=== PATIENT | female | born 1955 | race Caucasian/White ===

== ENCOUNTER 2016-12-21 12:03 | Inpatient (IN) | payer OTHER ==
--- NOTE | ~2016-12-21 | HP ---
History And Physical [id number] [place]. [address] NAME: MARKUS HOFFMAN : 57 STATUS : ADM IN [facility]#: [id number] AGE: 61 ADM/REG DATE : 12/21/16 MR#: [id number] REPORT SERV DATE: 12/21/16 DICTATED BY: BOONE SARMIENTO DATE: 12/21/16 REPORT STATUS : Draft TRANSCRIBED BY: JOHNNIE DATE: 12/21/16 DATE OF ADMISSION: 12/21/2016 CHIEF COMPLAINT: Nausea and diarrhea. HISTORY OF PRESENT ILLNESS: The patient is a 61-year-old white female recently diagnosed with breast cancer, started chemotherapy, received one round of chemotherapy on Monday prior to admission with Perjeta, carboplatin, Herceptin, and Taxotere. Since then, she has just become progressively weak. She has not been able to tolerate any food. She has had significant diarrhea last night. She got so worse that she could hardly turn over in bed, and then Monday prior to this admission, this patient actually fell out of her chair, almost had a syncopal episode injuring her left shoulder and her left arm. She went to the Oncology office today and was transferred here for further evaluation and treatment. Her ANC was 400. This patient denies any blood in the stool. She has not had any chest pain, shortness of breath. No vomiting. She has lost significant amount of weight and is down to about 100 pounds. She denied any fevers or chills or no other constitutional symptoms. REVIEW OF SYSTEMS: A 10-point review of systems otherwise is negative. PAST MEDICAL HISTORY: Significant for breast cancer, which is recently diagnosed; migraine headaches; seizure disorder; and hypertension. PAST SURGICAL HISTORY: Significant for hysterectomy and cholecystectomy. ALLERGIES: SULFA, ADHESIVE TAPE, AND PHENERGAN. HOME MEDICATIONS: Tylenol 500 mg every six hours p.r.n. for pain, Lomotil 2.5 mg p.o. every two hours p.r.n., Marinol 2.5 mg p.o. before meals, Lamictal 150 mg twice daily, lisinopril 40 mg twice daily, pravastatin 40 mg once at bedtime, and chemotherapy once every 21 days. SOCIAL HISTORY: She denies use of tobacco or cigarettes. She rarely drinks. She denies use of any illicit substances. Lives at home and is self-sufficient in all ADLs. FAMILY HISTORY: Distant cousins and relatives with breast cancer. No immediate family including sister or mother or brothers with breast cancer. She does have heart disease in her family including both parents. PHYSICAL EXAMINATION: GENERAL: White female, lying on the bed, appears to be in no obvious respiratory distress, but does appear acutely ill, very weak and feeble appearing. VITAL SIGNS: Blood pressure 138/65, temperature is 99, pulse is 92, saturation of 98% on room air. HEENT: Head is normocephalic, atraumatic. Pupils are equal, round, and reactive to light. Extraocular muscles are intact. Sclerae anicteric. Conjunctivae are normal. Oropharynx, dry mucous membranes. Tongue protrudes in midline. Uvula midline. History And Physical [address] [address] NAME: MARKUS HOFFMAN : 57 STATUS : ADM IN [facility]#: [id number] AGE: 61 ADM/REG DATE : 12/21/16 MR#: [id number] REPORT SERV DATE: 12/21/16 DICTATED BY: BOONE SARMIENTO. DATE: 12/21/16 REPORT STATUS : Draft TRANSCRIBED BY: JOHNNIE DATE: 12/21/16 NECK: Supple. No evidence of any jugular venous distention. No carotid bruits or thyromegaly is appreciated. No lymphadenopathy in the neck is palpable. HEART: Distant tachycardia. No murmurs, rubs, or gallops. PMI nondisplaced. LUNGS: Clear to auscultation both anteriorly and posteriorly without rales, rhonchi, wheezing, or consolidation. ABDOMEN: Scaphoid, soft, nontender, good bowel sounds. No rebound or guarding. No organomegaly. EXTREMITIES: Without cyanosis, clubbing, or edema. NEUROLOGIC: Completely intact. LABORATORY DATA: Procalcitonin level is pending. Sodium 137, potassium 3.5, chloride 106, bicarb 27, BUN 8, creatinine 0.89, glucose of 76, calcium is 8.2, total protein 5.9, albumin is 2.8. Liver function studies are all normal. Lactate level is pending. White count is 8.3, hemoglobin of 9.4, hematocrit 27, platelet count is 182,000. Urinalysis is pending. Stool studies are pending. IMPRESSION: 1. Hypotension with hypovolemic shock. 2. Dehydration. 3. Diarrhea. 4. Breast cancer. 5. Migraine headaches. 6. Seizure disorder. 7. Hyperlipidemia. PLAN: The patient will be admitted. IV fluids will be given. We will monitor labs. We will have Dr. Kana Yates see the patient in consultation. I have personally addressed all home medications. We will check stool studies for C difficile, WBC, cultures, and O and P. the patient remains a full code. SV/MODL Boone Sarmiento M.D. / [id number] CC: Boone Sarmiento M.D. [facility] Kana Yates M.D.
--- NOTE | ~2016-12-21 | IDS ---
Interim Discharge Summary [facility] [address] [place]. [address] NAME: MARKUS HOFFMAN : 57 STATUS : ADM IN [facility]#: [id number] AGE: 61 ADM/REG DATE : 12/21/16 MR#: [id number] REPORT SERV DATE: 12/26/16 DICTATED BY: LAUREN LEDBETTER DATE: 12/26/16 REPORT STATUS : Draft TRANSCRIBED BY: MODL DATE: 12/26/16 ADMISSION DATE: 12/21/2016 DISCHARGE DATE: DIAGNOSES: 1. Fever/colitis, on Zosyn. 2. Diarrhea secondary to chemotherapy. 3. Breast cancer. 4. Failure to thrive. 5. Severe protein-calorie malnutrition. 6. Hyponatremia. 7. Debility. LABORATORY DATA: WBCs 10.7, hemoglobin 9.7, hematocrit 28.4, platelet count is 239. Sodium is 130, potassium is 4.4, chloride is 102, CO2 is 20, BUN is 28, creatinine is 0.93, and glucose is 103. COURSE AT HOSPITAL STAY: Please refer to history and physical dictated by Dr. Sarmiento on 12/21/2016, for complete admission details. This patient is a 61-year-old female with a history of breast cancer, started chemotherapy and received one round of chemo one day prior to this admission. She presented with complaints of nausea and vomiting as well as diarrhea following chemotherapy stating that she was unable to keep anything down. 1. Fever/colitis. The patient was started on Zosyn on 12/24/2016. Blood cultures have remained negative. Procalcitonin was 0.57. The patient had been afebrile x24 hours. Antibiotics continued at this time. 2. Diarrhea secondary to chemotherapy. Upon admission, stool studies were obtained, which were negative. The patient at this time is on Lomotil ?.. 3. Breast cancer. The patient is followed by Dr. Kana Yates. Oncology is following the patient during this hospital stay. She has received one cycle of chemotherapy prior to this admission. At that time, she received Perjeta, carboplatin, Herceptin, and Taxotere. 4. Failure to thrive, severe protein-calorie malnutrition. The patient has been unable to keep food down, stating that she has approximately lost 100 pounds. TPN was started on 12/23/2016 potentially for 7-10 days. But she is tolerating a clear liquid diet at this time. 5. Debility. The patient has had complaints of extreme weakness and fatigue. PT evaluation has been ordered for evaluation and treatment. Discharge planning will be pending PT providing evaluation recommendations. DISCHARGE PLANNING: PT evaluation pending, unsure if the patient would be discharged home or to a rehab facility. apartment community manager is following the patient. Discharge date at this time is unknown. Interim Discharge Summary [address] [place]. [address] NAME: MARKUS HOFFMAN : 57 STATUS : ADM IN [facility]#: [id number] AGE: 61 ADM/REG DATE : 12/21/16 MR#: [id number] REPORT SERV DATE: 12/26/16 DICTATED BY: LAUREN LEDBETTER DATE: 12/26/16 REPORT STATUS : Draft TRANSCRIBED BY: JOHNNIE DATE: 12/26/16 /JOHNNIE Lauren Ledbetter NP / [id number] CC: Chico Nobles MD TA, ANH
--- NOTE | ~2016-12-21 | DS ---
Discharge Summary [id number] [place]. [address] NAME: MARKUS HOFFMAN : 57 STATUS : DIS IN PAT#: [id number] AGE: 61 ADM/REG DATE : 12/21/16 MR#: [id number] REPORT SERV DATE: 01/03/17 DICTATED BY: DATE: REPORT STATUS : Draft TRANSCRIBED BY: MODL DATE: 01/02/17 ADMISSION DATE: 12/21/2016 DISCHARGE DATE: 01/02/2017 DISCHARGE DIAGNOSES: 1. Fever and mild colitis. 2. Diarrhea due to fever and mild colitis and chemotherapy. 3. Breast cancer stage II, positive nodes and HER2. 4. Failure to thrive with severe protein-calorie malnutrition. 5. Debility. 6. Transaminitis. CONSULTING PHYSICIAN: Include Dr. Jordan Yates with Oncology. DISCHARGE MEDICATIONS: Include, Lomotil 2.5 mg p.o. q.6 hours p.r.n. for loose stools. Marinol 5 mg p.o. with meals and at bedtime. Lamictal 150 mg p.o. b.i.d. Multivitamin daily. Pravastatin 40 mg p.o. at bedtime. Lisinopril 40 mg p.o. b.i.d. Tylenol 500 mg p.o. q.4 hours p.r.n. for pain. Compazine 10 mg p.o. t.i.d. p.r.n. for nausea. For full H and P, please refer to Dr. Boone Sarmiento's dictation on 12/21/2016. Please also see Micaela Ledbetter's interim discharge summary on 12/26/2016. IMAGING: Includes CT of the abdomen and pelvis with contrast which demonstrated mild colitis from the mid transverse colon to the rectum with fluid-filled colon and mild engorgement of the vasa recta. There was not substantial wall thickening of the colon. Appearance of the liver was within normal limits. No biliary obstruction was noted. The patient is status post cholecystectomy and pancreatic division which is a normal variant. HOSPITAL COURSE/PROBLEM LIST: 1. Fevers and colitis. The patient is afebrile. She has had 1-2 bowel movements for the last two days. Continue Lomotil and Imodium p.r.n. upon discharge. 2. Diarrhea due to fevers, colitis, and chemotherapy. Again, the patient has had 1-2 bowel movements for the last several days. 3. Stage II breast cancer with positive nodes and HER2. The patient is followed by Dr. Jordan Yates. She will follow up with him as an outpatient in one week. 4. Failure to thrive. The patient was on TPN during most of her hospital course. I weaned this off yesterday. The patient is now taking in p.o. She is eating a regular diet and also drinking Boost with meals. She has had severe nausea, that is controlled now with Marinol 5 mg 4 times a day as well as Compazine p.o. continue this upon discharge. 5. Debility. The patient was evaluated by Physical Therapy while here in the hospital. They have been following along. We will set up home health care physical therapy for her. The patient states she has a good support system at home. Her son is an RN who helps take care of her. 6. Transaminitis. This is likely due to the TPN. Her last ALT was 120, and AST is 76, lipase was 655. This is stable. She will need this rechecked as an outpatient to Discharge Summary [address] [place]. [address] NAME: MARKUS HOFFMAN : 57 STATUS : DIS IN PAT#: [id number] AGE: 61 ADM/REG DATE : 12/21/16 MR#: [id number] REPORT SERV DATE: 01/03/17 DICTATED BY: DATE: REPORT STATUS : Draft TRANSCRIBED BY: JOHNNIE DATE: 01/02/17 ensure that these are trending down. Again, she has a followup with Dr. Jordan Yates in one week post discharge. This discharge took greater than 30 minutes due to medication reconciliation, coordination with the case management to set up home health care PT as well as education with the patient. DICTATED BY: SUSAN Munguia/JOHNNIE Azar Slade NP / [id number] CC: Sylvia Edouard MD
[2016-12-21] MEDS ORDERED: LAMICTAL150 MG PO (13:07)
[2016-12-21] MEDS ORDERED: ZESTRIL40 MG PO (13:07)
[2016-12-21] MEDS ORDERED: PRAVACHOL40 MG PO (13:07)
[2016-12-21] MEDS ORDERED: MARI2.5 PO (13:08)
[2016-12-21] MEDS ORDERED: CHEMO IV (13:08)
[2016-12-21] MEDS ORDERED: LOM PO (13:09)
[2016-12-21] MEDS ORDERED: ACET500CAP PO (13:10)
[2016-12-21 14:05] LABS: HEMATOCRIT 27.5 % (36.0-48.0); HEMOGLOBIN 9.4 g/dL (12.0-16.0); MANUAL DIFF YES %; MEAN CORPUS HGB CONC 34.2 g/dL (32.0-36.0); MEAN CORPUSCULAR HEMOGLOB 30.8 pg (26.0-34.0); MEAN CORPUSCULAR VOLUME 90.2 fL (80-100); PLATELET COUNT 182 10/3/uL (150-400); RED CELL COUNT 3.05 10/6/uL (4.0-5.6); WHITE BLOOD CELLS 8.3 10/3/uL (4.5-10.5)
[2016-12-21 14:18] LABS: A/G RATIO 0.9 (0.7-1.9); ALBUMIN 2.8 G/DL (3.5-5.0); ALKALINE PHOSPHATASE 94 U/L (45-117); BUN (BLOOD UREA NITROGEN) 8 MG/DL (6-23); CALCIUM, SERUM 8.2 MG/DL (8.5-10.4); CHLORIDE, SERUM 106 MMOL/L (96-112); CO2 (CARBON DIOXIDE) 27 MMOL/L (24-34); CREATININE 0.89 MG/DL (0.55-1.02); GFR AFRICAN AMERICAN 82 ML/MIN (>=60); GFR NON AFRICAN AMERICAN 70 ML/MIN (>=60); GLOBULIN 3.1 G/DL (2.5-4.1); GLUCOSE, SERUM 76 MG/DL (60-99); POTASSIUM, SERUM 3.5 MMOL/L (3.5-5.3); SGOT(AST) 17 U/L (5-40); SGPT(ALT) 18 U/L (5-65); SODIUM, SERUM 137 MMOL/L (135-148); TOTAL BILIRUBIN 0.3 MG/DL (0-1.2); TOTAL PROTEIN 5.9 G/DL (6.0-8.5)
[2016-12-21 14:22] LABS: BAND NEUTROPHILS 5 %; LYMPHOCYTES 18 %; LYMPHOCYTES ABSOLUTE (CALC) 1.49 10/3/uL (0.67-4.30); MONOCYTES 16 %; MONOCYTES ABSOLUTE (CALC) 1.33 10/3/uL (0.21-1.20); NEUTROPHILS ABSOLUTE (CALC) 5.48 10/3/uL (2.02-8.40); PLATELET ESTIMATE ADQ (ADEQUATE); RBC MORPHOLOGY NORM (NORMAL); SEGMENTED NEUTROPHIL (0) 61 %; TOTAL NUCLEATED CELLS 100
[2016-12-21 15:16] LABS: PROCALCITONIN 0.62 ng/mL (<0.5)
[2016-12-21 16:28] LABS: PHOSPHORUS, SERUM 2.4 MG/DL (2.5-4.5)
[2016-12-21 16:31] LABS: RETICULOCYTE COUNT < 0.4 % (0.5-2.9)
[2016-12-21 16:37] LABS: ASCORBIC ACID (UR NOT ORDER) NEG (NEG); BILIRUBIN, URINE NEGATIVE (NEG); KETONE, URINE NEGATIVE (NEG); LEUKOCYTE ESTERASE(NOT OR NEG (NEG); WBC (NOT ORDERED) (RFLEX) 1 (0-5)
[2016-12-23 04:58] LABS: HEMATOCRIT 25.3 % (36.0-48.0); HEMOGLOBIN 8.7 g/dL (12.0-16.0); MEAN CORPUS HGB CONC 34.4 g/dL (32.0-36.0); MEAN CORPUSCULAR HEMOGLOB 30.6 pg (26.0-34.0); MEAN CORPUSCULAR VOLUME 89.1 fL (80-100); PLATELET COUNT 189 10/3/uL (150-400); RBC DISTRIBUTION WIDTH 12.2 % (12.0-16.0); RED CELL COUNT 2.84 10/6/uL (4.0-5.6)
[2016-12-23 05:03] LABS: MANUAL DIFF YES %; WHITE BLOOD CELLS 13.3 10/3/uL (4.5-10.5)
[2016-12-23 05:21] LABS: ALBUMIN 2.4 G/DL (3.5-5.0); CALCIUM, SERUM 7.5 MG/DL (8.5-10.4); CHLORIDE, SERUM 107 MMOL/L (96-112); CO2 (CARBON DIOXIDE) 23 MMOL/L (24-34); CREATININE 0.79 MG/DL (0.55-1.02); GFR AFRICAN AMERICAN 94 ML/MIN (>=60); GFR NON AFRICAN AMERICAN 81 ML/MIN (>=60); SODIUM, SERUM 139 MMOL/L (135-148)
[2016-12-23 05:33] LABS: BUN (BLOOD UREA NITROGEN) < 1 MG/DL (6-23); GLUCOSE, SERUM 105 MG/DL (60-99); PHOSPHORUS, SERUM 1.5 MG/DL (2.5-4.5); POTASSIUM, SERUM 2.8 MMOL/L (3.5-5.3)
[2016-12-23 06:25] LABS: BAND NEUTROPHILS 11 %; EOSINOPHILS 1 %; EOSINOPHILS ABSOLUTE (CALC) 0.13 10/3/uL (0.0-0.53); IMMATURE GRANS ABSOLUTE (CALC) 1.06 10/3/uL (0.0-0.11); LYMPHOCYTES 17 %; LYMPHOCYTES ABSOLUTE (CALC) 2.26 10/3/uL (0.67-4.30); METAMYELOCYTES 7 %; MONOCYTES 12 %; MYELOCYTES 1 %; NEUTROPHILS ABSOLUTE (CALC) 8.25 10/3/uL (2.02-8.40); PLATELET ESTIMATE ADQ (ADEQUATE); RBC MORPHOLOGY NORM (NORMAL); SEGMENTED NEUTROPHIL (0) 51 %; TOTAL NUCLEATED CELLS 100
[2016-12-23 10:21] LABS: PREALBUMIN 9.6 MG/DL (17.0-43.0); TRIGLYCERIDE 75 MG/DL (< 150)
[2016-12-24 06:42] LABS: HEMOGLOBIN 9.9 g/dL (12.0-16.0); MEAN CORPUS HGB CONC 34.3 g/dL (32.0-36.0); MEAN CORPUSCULAR HEMOGLOB 30.7 pg (26.0-34.0); MEAN CORPUSCULAR VOLUME 89.5 fL (80-100); MEAN PLATELET VOLUME 9.1 fL (9.2-13.0); PLATELET COUNT 206 10/3/uL (150-400); RED CELL COUNT 3.23 10/6/uL (4.0-5.6); WHITE BLOOD CELLS 10.1 10/3/uL (4.5-10.5)
[2016-12-24 06:47] LABS: HEMATOCRIT 28.9 % (36.0-48.0); MANUAL DIFF YES %
[2016-12-24 06:57] LABS: A/G RATIO 0.7 (0.7-1.9); ALBUMIN 2.3 G/DL (3.5-5.0); CALCIUM, SERUM 8.1 MG/DL (8.5-10.4); CHLORIDE, SERUM 103 MMOL/L (96-112); CO2 (CARBON DIOXIDE) 23 MMOL/L (24-34); CREATININE 0.84 MG/DL (0.55-1.02); GFR AFRICAN AMERICAN 88 ML/MIN (>=60); GFR NON AFRICAN AMERICAN 76 ML/MIN (>=60); GLOBULIN 3.4 G/DL (2.5-4.1); GLUCOSE, SERUM 107 MG/DL (60-99); SGOT(AST) 8 U/L (5-40); SGPT(ALT) 13 U/L (5-65); SODIUM, SERUM 135 MMOL/L (135-148); TOTAL BILIRUBIN 0.4 MG/DL (0-1.2); TOTAL PROTEIN 5.7 G/DL (6.0-8.5)
[2016-12-24 06:58] LABS: ALKALINE PHOSPHATASE 136 U/L (45-117); BUN (BLOOD UREA NITROGEN) 13 MG/DL (6-23); PHOSPHORUS, SERUM 2.2 MG/DL (2.5-4.5)
[2016-12-24 07:30] LABS: BAND NEUTROPHILS 39 %; LYMPHOCYTES 14 %; LYMPHOCYTES ABSOLUTE (CALC) 1.41 10/3/uL (0.67-4.30); METAMYELOCYTES 1 %; MONOCYTES 8 %; MONOCYTES ABSOLUTE (CALC) 0.81 10/3/uL (0.21-1.20); NEUTROPHILS ABSOLUTE (CALC) 7.78 10/3/uL (2.02-8.40); PLATELET ESTIMATE ADQ (ADEQUATE); RBC MORPHOLOGY NORM (NORMAL); SEGMENTED NEUTROPHIL (0) 38 %; TOTAL NUCLEATED CELLS 100; TOXIC GRANULATION 1+
[2016-12-24 08:19] LABS: PROCALCITONIN 0.57 ng/mL (<0.5)
[2016-12-25 05:00] LABS: HEMATOCRIT 27.1 % (36.0-48.0); HEMOGLOBIN 9.4 g/dL (12.0-16.0); MEAN CORPUS HGB CONC 34.7 g/dL (32.0-36.0); MEAN CORPUSCULAR HEMOGLOB 30.2 pg (26.0-34.0); MEAN CORPUSCULAR VOLUME 87.1 fL (80-100); MEAN PLATELET VOLUME 9.3 fL (9.2-13.0); PLATELET COUNT 211 10/3/uL (150-400); RBC DISTRIBUTION WIDTH 12.3 % (12.0-16.0); RED CELL COUNT 3.11 10/6/uL (4.0-5.6); WHITE BLOOD CELLS 9.5 10/3/uL (4.5-10.5)
[2016-12-25 05:01] LABS: MANUAL DIFF YES %
[2016-12-25 05:18] LABS: BUN (BLOOD UREA NITROGEN) 24 MG/DL (6-23); CALCIUM, SERUM 8.2 MG/DL (8.5-10.4); CHLORIDE, SERUM 101 MMOL/L (96-112); CO2 (CARBON DIOXIDE) 22 MMOL/L (24-34); CREATININE 0.95 MG/DL (0.55-1.02); GFR AFRICAN AMERICAN 75 ML/MIN (>=60); GFR NON AFRICAN AMERICAN 65 ML/MIN (>=60); GLUCOSE, SERUM 100 MG/DL (60-99); PHOSPHORUS, SERUM 1.7 MG/DL (2.5-4.5); POTASSIUM, SERUM 3.9 MMOL/L (3.5-5.3); SODIUM, SERUM 130 MMOL/L (135-148)
[2016-12-25 05:55] LABS: BAND NEUTROPHILS 30 %; IMMATURE GRANS ABSOLUTE (CALC) 0.19 10/3/uL (0.0-0.11); LYMPHOCYTES 10 %; LYMPHOCYTES ABSOLUTE (CALC) 0.95 10/3/uL (0.67-4.30); METAMYELOCYTES 1 %; MONOCYTES 5 %; MONOCYTES ABSOLUTE (CALC) 0.48 10/3/uL (0.21-1.20); MYELOCYTES 1 %; NEUTROPHILS ABSOLUTE (CALC) 7.89 10/3/uL (2.02-8.40); SEGMENTED NEUTROPHIL (0) 53 %; TOTAL NUCLEATED CELLS 100
[2016-12-25 05:56] LABS: BURR CELLS 1+ (3-10/OIF) (0-2/OIF); PLATELET ESTIMATE ADQ (ADEQUATE); TOXIC GRANULATION SLT
[2016-12-26 05:13] LABS: HEMATOCRIT 28.4 % (36.0-48.0); HEMOGLOBIN 9.7 g/dL (12.0-16.0); MEAN CORPUS HGB CONC 34.2 g/dL (32.0-36.0); MEAN CORPUSCULAR HEMOGLOB 29.9 pg (26.0-34.0); MEAN CORPUSCULAR VOLUME 87.7 fL (80-100); MEAN PLATELET VOLUME 9.3 fL (9.2-13.0); PLATELET COUNT 239 10/3/uL (150-400); RBC DISTRIBUTION WIDTH 12.5 % (12.0-16.0); RED CELL COUNT 3.24 10/6/uL (4.0-5.6); WHITE BLOOD CELLS 10.7 10/3/uL (4.5-10.5)
[2016-12-26 05:17] LABS: MANUAL DIFF YES %
[2016-12-26 05:25] LABS: CALCIUM, SERUM 8.8 MG/DL (8.5-10.4); CHLORIDE, SERUM 102 MMOL/L (96-112); CO2 (CARBON DIOXIDE) 20 MMOL/L (24-34); CREATININE 0.93 MG/DL (0.55-1.02); GFR AFRICAN AMERICAN 77 ML/MIN (>=60); GFR NON AFRICAN AMERICAN 67 ML/MIN (>=60); GLUCOSE, SERUM 103 MG/DL (60-99); POTASSIUM, SERUM 4.4 MMOL/L (3.5-5.3); SODIUM, SERUM 130 MMOL/L (135-148)
[2016-12-26 05:26] LABS: BUN (BLOOD UREA NITROGEN) 28 MG/DL (6-23); PHOSPHORUS, SERUM 3.2 MG/DL (2.5-4.5)
[2016-12-26 07:55] LABS: BAND NEUTROPHILS 10 %; IMMATURE GRANS ABSOLUTE (CALC) 0.32 10/3/uL (0.0-0.11); LYMPHOCYTES 12 %; LYMPHOCYTES ABSOLUTE (CALC) 1.28 10/3/uL (0.67-4.30); METAMYELOCYTES 2 %; MONOCYTES 9 %; MONOCYTES ABSOLUTE (CALC) 0.96 10/3/uL (0.21-1.20); MYELOCYTES 1 %; NEUTROPHILS ABSOLUTE (CALC) 8.13 10/3/uL (2.02-8.40); PLATELET ESTIMATE ADQ (ADEQUATE); SEGMENTED NEUTROPHIL (0) 66 %; TOTAL NUCLEATED CELLS 100; VACUOLATED NEUTROPHILES 1+
[2016-12-26 07:56] LABS: RBC MORPHOLOGY NORM (NORMAL); TOXIC GRANULATION 2+
[2016-12-27 04:32] LABS: HEMATOCRIT 29.1 % (36.0-48.0); MEAN CORPUS HGB CONC 34.4 g/dL (32.0-36.0); MEAN CORPUSCULAR HEMOGLOB 30.7 pg (26.0-34.0); MEAN CORPUSCULAR VOLUME 89.3 fL (80-100); MEAN PLATELET VOLUME 9.5 fL (9.2-13.0); PLATELET COUNT 297 10/3/uL (150-400); RBC DISTRIBUTION WIDTH 12.5 % (12.0-16.0); RED CELL COUNT 3.26 10/6/uL (4.0-5.6); WHITE BLOOD CELLS 10.7 10/3/uL (4.5-10.5)
[2016-12-27 04:33] LABS: ALBUMIN 2.5 G/DL (3.5-5.0); BUN (BLOOD UREA NITROGEN) 27 MG/DL (6-23); CALCIUM, SERUM 9.3 MG/DL (8.5-10.4); CHLORIDE, SERUM 106 MMOL/L (96-112); CO2 (CARBON DIOXIDE) 22 MMOL/L (24-34); CREATININE 0.89 MG/DL (0.55-1.02); GFR AFRICAN AMERICAN 82 ML/MIN (>=60); GFR NON AFRICAN AMERICAN 70 ML/MIN (>=60); GLUCOSE, SERUM 93 MG/DL (60-99); MANUAL DIFF YES %; PHOSPHORUS, SERUM 3.6 MG/DL (2.5-4.5); POTASSIUM, SERUM 5.1 MMOL/L (3.5-5.3); SGOT(AST) 146 U/L (5-40); SGPT(ALT) 103 U/L (5-65); TOTAL BILIRUBIN 0.4 MG/DL (0-1.2); TOTAL PROTEIN 6.6 G/DL (6.0-8.5)
[2016-12-27 04:35] LABS: A/G RATIO 0.6 (0.7-1.9); ALKALINE PHOSPHATASE 442 U/L (45-117); GLOBULIN 4.1 G/DL (2.5-4.1); SODIUM, SERUM 137 MMOL/L (135-148)
[2016-12-27 05:00] LABS: ATYPICAL LYMPH OCC (0-2%) (0-5%); BAND NEUTROPHILS 9 %; IMMATURE GRANS ABSOLUTE (CALC) 1.18 10/3/uL (0.0-0.11); LYMPHOCYTES 21 %; LYMPHOCYTES ABSOLUTE (CALC) 2.25 10/3/uL (0.67-4.30); METAMYELOCYTES 7 %; MONOCYTES 3 %; MONOCYTES ABSOLUTE (CALC) 0.32 10/3/uL (0.21-1.20); MYELOCYTES 4 %; NEUTROPHILS ABSOLUTE (CALC) 6.96 10/3/uL (2.02-8.40); PLATELET ESTIMATE ADQ (ADEQUATE); SEGMENTED NEUTROPHIL (0) 56 %; TOTAL NUCLEATED CELLS 100; TOXIC GRANULATION 1+
[2016-12-28 05:21] LABS: HEMOGLOBIN 8.9 g/dL (12.0-16.0); MEAN CORPUS HGB CONC 34.5 g/dL (32.0-36.0); MEAN CORPUSCULAR HEMOGLOB 30.8 pg (26.0-34.0); MEAN CORPUSCULAR VOLUME 89.3 fL (80-100); MEAN PLATELET VOLUME 9.4 fL (9.2-13.0); PLATELET COUNT 321 10/3/uL (150-400); RBC DISTRIBUTION WIDTH 12.6 % (12.0-16.0); RED CELL COUNT 2.89 10/6/uL (4.0-5.6); WHITE BLOOD CELLS 14.9 10/3/uL (4.5-10.5)
[2016-12-28 05:22] LABS: HEMATOCRIT 25.8 % (36.0-48.0); MANUAL DIFF YES %
[2016-12-28 05:36] LABS: A/G RATIO 0.6 (0.7-1.9); ALBUMIN 2.1 G/DL (3.5-5.0); ALKALINE PHOSPHATASE 441 U/L (45-117); CALCIUM, SERUM 8.9 MG/DL (8.5-10.4); CHLORIDE, SERUM 108 MMOL/L (96-112); CREATININE 0.81 MG/DL (0.55-1.02); GFR AFRICAN AMERICAN 91 ML/MIN (>=60); GFR NON AFRICAN AMERICAN 79 ML/MIN (>=60); GLOBULIN 3.7 G/DL (2.5-4.1); PHOSPHORUS, SERUM 2.8 MG/DL (2.5-4.5); SGOT(AST) 88 U/L (5-40); SGPT(ALT) 120 U/L (5-65); SODIUM, SERUM 135 MMOL/L (135-148); TOTAL BILIRUBIN 0.5 MG/DL (0-1.2); TOTAL PROTEIN 5.8 G/DL (6.0-8.5)
[2016-12-28 05:37] LABS: BUN (BLOOD UREA NITROGEN) 21 MG/DL (6-23); CO2 (CARBON DIOXIDE) 17 MMOL/L (24-34); GLUCOSE, SERUM 116 MG/DL (60-99); POTASSIUM, SERUM 3.9 MMOL/L (3.5-5.3)
[2016-12-28 06:27] LABS: BAND NEUTROPHILS 3 %; IMMATURE GRANS ABSOLUTE (CALC) 1.64 10/3/uL (0.0-0.11); LYMPHOCYTES 5 %; LYMPHOCYTES ABSOLUTE (CALC) 0.75 10/3/uL (0.67-4.30); METAMYELOCYTES 8 %; MONOCYTES 5 %; MONOCYTES ABSOLUTE (CALC) 0.75 10/3/uL (0.21-1.20); MYELOCYTES 3 %; NEUTROPHILS ABSOLUTE (CALC) 11.77 10/3/uL (2.02-8.40); PLATELET ESTIMATE ADQ (ADEQUATE); RBC MORPHOLOGY NORM (NORMAL); SEGMENTED NEUTROPHIL (0) 76 %; TOTAL NUCLEATED CELLS 100
[2016-12-28 11:42] LABS: PROCALCITONIN 0.91 ng/mL (<0.5)
[2016-12-28 14:00] LABS: ASCORBIC ACID (UR NOT ORDER) NEG (NEG); BILIRUBIN, URINE NEGATIVE (NEG); KETONE, URINE NEGATIVE (NEG); LEUKOCYTE ESTERASE(NOT OR NEG (NEG); WBC (NOT ORDERED) (RFLEX) 1 (0-5)
[2016-12-29 07:19] LABS: HEMATOCRIT 25.1 % (36.0-48.0); HEMOGLOBIN 8.5 g/dL (12.0-16.0); MEAN CORPUS HGB CONC 33.9 g/dL (32.0-36.0); MEAN CORPUSCULAR HEMOGLOB 30.5 pg (26.0-34.0); MEAN PLATELET VOLUME 9.3 fL (9.2-13.0); PLATELET COUNT 403 10/3/uL (150-400); RBC DISTRIBUTION WIDTH 12.9 % (12.0-16.0); RED CELL COUNT 2.79 10/6/uL (4.0-5.6); WHITE BLOOD CELLS 14.1 10/3/uL (4.5-10.5)
[2016-12-29 07:21] LABS: MANUAL DIFF YES %
[2016-12-29 07:47] LABS: A/G RATIO 0.6 (0.7-1.9); ALBUMIN 2.2 G/DL (3.5-5.0); CALCIUM, SERUM 8.4 MG/DL (8.5-10.4); CHLORIDE, SERUM 108 MMOL/L (96-112); CO2 (CARBON DIOXIDE) 19 MMOL/L (24-34); CREATININE 0.74 MG/DL (0.55-1.02); GFR AFRICAN AMERICAN 102 ML/MIN (>=60); GFR NON AFRICAN AMERICAN 88 ML/MIN (>=60); GLOBULIN 3.6 G/DL (2.5-4.1); GLUCOSE, SERUM 112 MG/DL (60-99); PHOSPHORUS, SERUM 2.2 MG/DL (2.5-4.5); POTASSIUM, SERUM 3.7 MMOL/L (3.5-5.3); SGOT(AST) 64 U/L (5-40); SGPT(ALT) 98 U/L (5-65); SODIUM, SERUM 135 MMOL/L (135-148); TOTAL BILIRUBIN 0.3 MG/DL (0-1.2); TOTAL PROTEIN 5.8 G/DL (6.0-8.5)
[2016-12-29 07:48] LABS: ALKALINE PHOSPHATASE 427 U/L (45-117); BUN (BLOOD UREA NITROGEN) 15 MG/DL (6-23)
[2016-12-29 08:32] LABS: BAND NEUTROPHILS 21 %; BURR CELLS 1+ (3-10/OIF) (0-2/OIF); IMMATURE GRANS ABSOLUTE (CALC) 1.69 10/3/uL (0.0-0.11); LYMPHOCYTES 7 %; LYMPHOCYTES ABSOLUTE (CALC) 0.99 10/3/uL (0.67-4.30); METAMYELOCYTES 8 %; MONOCYTES 5 %; MONOCYTES ABSOLUTE (CALC) 0.71 10/3/uL (0.21-1.20); MYELOCYTES 4 %; NEUTROPHILS ABSOLUTE (CALC) 10.72 10/3/uL (2.02-8.40); PLATELET ESTIMATE SLT INC (ADEQUATE); POIKILOCYTOSIS 1+ (5-10/OIF) (0-5/OIF); SEGMENTED NEUTROPHIL (0) 55 %; TOTAL NUCLEATED CELLS 100
[2016-12-29 08:33] LABS: TOXIC GRANULATION 2+
[2016-12-30 06:55] LABS: HEMATOCRIT 24.2 % (36.0-48.0); HEMOGLOBIN 8.1 g/dL (12.0-16.0); MEAN CORPUS HGB CONC 33.5 g/dL (32.0-36.0); MEAN CORPUSCULAR HEMOGLOB 30.2 pg (26.0-34.0); MEAN CORPUSCULAR VOLUME 90.3 fL (80-100); MEAN PLATELET VOLUME 9.1 fL (9.2-13.0); PLATELET COUNT 462 10/3/uL (150-400); RBC DISTRIBUTION WIDTH 13.2 % (12.0-16.0); RED CELL COUNT 2.68 10/6/uL (4.0-5.6); WHITE BLOOD CELLS 13.4 10/3/uL (4.5-10.5)
[2016-12-30 06:57] LABS: MANUAL DIFF YES %
[2016-12-30 07:11] LABS: ALBUMIN 2.1 G/DL (3.5-5.0); BUN (BLOOD UREA NITROGEN) 18 MG/DL (6-23); CALCIUM, SERUM 8.5 MG/DL (8.5-10.4); CHLORIDE, SERUM 108 MMOL/L (96-112); CO2 (CARBON DIOXIDE) 22 MMOL/L (24-34); CREATININE 0.71 MG/DL (0.55-1.02); GFR AFRICAN AMERICAN 107 ML/MIN (>=60); GFR NON AFRICAN AMERICAN 93 ML/MIN (>=60); GLUCOSE, SERUM 108 MG/DL (60-99); PHOSPHORUS, SERUM 2.6 MG/DL (2.5-4.5); PREALBUMIN 18.3 MG/DL (17.0-43.0); SODIUM, SERUM 136 MMOL/L (135-148)
[2016-12-30 07:13] LABS: TRIGLYCERIDE 109 MG/DL (< 150)
[2016-12-30 07:22] LABS: BAND NEUTROPHILS 13 %; IMMATURE GRANS ABSOLUTE (CALC) 0.94 10/3/uL (0.0-0.11); LYMPHOCYTES 6 %; METAMYELOCYTES 4 %; MONOCYTES 2 %; MONOCYTES ABSOLUTE (CALC) 0.27 10/3/uL (0.21-1.20); MYELOCYTES 3 %; NEUTROPHILS ABSOLUTE (CALC) 11.39 10/3/uL (2.02-8.40); PLATELET ESTIMATE SLT INC (ADEQUATE); SEGMENTED NEUTROPHIL (0) 72 %; TOTAL NUCLEATED CELLS 100
[2016-12-30 07:23] LABS: POLYCHROMASIA 1+ (2-5/OIF) (0-1/OIF); TOXIC GRANULATION 2+
[2016-12-30 10:26] LABS: ALKALINE PHOSPHATASE 435 U/L (45-117); SGOT(AST) 77 U/L (5-40); SGPT(ALT) 113 U/L (5-65)
[2016-12-31 05:37] LABS: HEMATOCRIT 23.9 % (36.0-48.0); HEMOGLOBIN 7.9 g/dL (12.0-16.0); MEAN CORPUS HGB CONC 33.1 g/dL (32.0-36.0); MEAN CORPUSCULAR HEMOGLOB 30.3 pg (26.0-34.0); MEAN CORPUSCULAR VOLUME 91.6 fL (80-100); PLATELET COUNT 499 10/3/uL (150-400); RBC DISTRIBUTION WIDTH 13.2 % (12.0-16.0); RED CELL COUNT 2.61 10/6/uL (4.0-5.6); WHITE BLOOD CELLS 14.4 10/3/uL (4.5-10.5)
[2016-12-31 05:39] LABS: MANUAL DIFF YES %
[2016-12-31 05:56] LABS: A/G RATIO 0.5 (0.7-1.9); ALKALINE PHOSPHATASE 432 U/L (45-117); BUN (BLOOD UREA NITROGEN) 17 MG/DL (6-23); CALCIUM, SERUM 8.3 MG/DL (8.5-10.4); CHLORIDE, SERUM 109 MMOL/L (96-112); CO2 (CARBON DIOXIDE) 23 MMOL/L (24-34); CREATININE 0.67 MG/DL (0.55-1.02); GFR AFRICAN AMERICAN 111 ML/MIN (>=60); GFR NON AFRICAN AMERICAN 96 ML/MIN (>=60); GLOBULIN 3.7 G/DL (2.5-4.1); GLUCOSE, SERUM 97 MG/DL (60-99); PHOSPHORUS, SERUM 2.3 MG/DL (2.5-4.5); SGOT(AST) 98 U/L (5-40); SGPT(ALT) 132 U/L (5-65); SODIUM, SERUM 140 MMOL/L (135-148); TOTAL BILIRUBIN 0.3 MG/DL (0-1.2); TOTAL PROTEIN 5.7 G/DL (6.0-8.5)
[2016-12-31 06:10] LABS: BAND NEUTROPHILS 14 %; LYMPHOCYTES 10 %; LYMPHOCYTES ABSOLUTE (CALC) 1.44 10/3/uL (0.67-4.30); METAMYELOCYTES 8 %; MONOCYTES 4 %; MONOCYTES ABSOLUTE (CALC) 0.58 10/3/uL (0.21-1.20); MYELOCYTES 1 %; NEUTROPHILS ABSOLUTE (CALC) 11.09 10/3/uL (2.02-8.40); PLATELET ESTIMATE SLT INC (ADEQUATE); RBC MORPHOLOGY NORM (NORMAL); SEGMENTED NEUTROPHIL (0) 63 %; TOTAL NUCLEATED CELLS 100
[2017-01-01 05:18] LABS: HEMATOCRIT 22.1 % (36.0-48.0); HEMOGLOBIN 7.4 g/dL (12.0-16.0); MEAN CORPUS HGB CONC 33.5 g/dL (32.0-36.0); MEAN CORPUSCULAR VOLUME 92.5 fL (80-100); MEAN PLATELET VOLUME 8.8 fL (9.2-13.0); PLATELET COUNT 531 10/3/uL (150-400); RBC DISTRIBUTION WIDTH 13.3 % (12.0-16.0); RED CELL COUNT 2.39 10/6/uL (4.0-5.6); WHITE BLOOD CELLS 14.2 10/3/uL (4.5-10.5)
[2017-01-01 05:22] LABS: MANUAL DIFF YES %
[2017-01-01 05:48] LABS: A/G RATIO 0.6 (0.7-1.9); ALBUMIN 2.1 G/DL (3.5-5.0); BUN (BLOOD UREA NITROGEN) 17 MG/DL (6-23); CALCIUM, SERUM 8.3 MG/DL (8.5-10.4); CHLORIDE, SERUM 110 MMOL/L (96-112); CO2 (CARBON DIOXIDE) 22 MMOL/L (24-34); CREATININE 0.64 MG/DL (0.55-1.02); GFR AFRICAN AMERICAN 112 ML/MIN (>=60); GFR NON AFRICAN AMERICAN 97 ML/MIN (>=60); GLOBULIN 3.4 G/DL (2.5-4.1); GLUCOSE, SERUM 105 MG/DL (60-99); PHOSPHORUS, SERUM 2.6 MG/DL (2.5-4.5); POTASSIUM, SERUM 4.1 MMOL/L (3.5-5.3); PREALBUMIN 19.3 MG/DL (17.0-43.0); SGOT(AST) 63 U/L (5-40); SGPT(ALT) 112 U/L (5-65); SODIUM, SERUM 140 MMOL/L (135-148); TOTAL BILIRUBIN 0.2 MG/DL (0-1.2); TOTAL PROTEIN 5.5 G/DL (6.0-8.5)
[2017-01-01 05:50] LABS: ALKALINE PHOSPHATASE 371 U/L (45-117)
[2017-01-01 05:55] LABS: BAND NEUTROPHILS 11 %; EOSINOPHILS 2 %; EOSINOPHILS ABSOLUTE (CALC) 0.28 10/3/uL (0.0-0.53); IMMATURE GRANS ABSOLUTE (CALC) 1.56 10/3/uL (0.0-0.11); LYMPHOCYTES 12 %; METAMYELOCYTES 10 %; MONOCYTES 3 %; MONOCYTES ABSOLUTE (CALC) 0.43 10/3/uL (0.21-1.20); MYELOCYTES 1 %; NEUTROPHILS ABSOLUTE (CALC) 10.22 10/3/uL (2.02-8.40); SEGMENTED NEUTROPHIL (0) 61 %; TOTAL NUCLEATED CELLS 100
[2017-01-01 05:56] LABS: PLATELET ESTIMATE INC (ADEQUATE); RBC MORPHOLOGY NORM (NORMAL)
[2017-01-02 08:19] LABS: HEMATOCRIT 23.1 % (36.0-48.0); HEMOGLOBIN 7.8 g/dL (12.0-16.0); MEAN CORPUS HGB CONC 33.8 g/dL (32.0-36.0); MEAN CORPUSCULAR HEMOGLOB 31.2 pg (26.0-34.0); MEAN CORPUSCULAR VOLUME 92.4 fL (80-100); MEAN PLATELET VOLUME 8.6 fL (9.2-13.0); PLATELET COUNT 527 10/3/uL (150-400); RBC DISTRIBUTION WIDTH 13.6 % (12.0-16.0); WHITE BLOOD CELLS 15.6 10/3/uL (4.5-10.5)
[2017-01-02 08:22] LABS: MANUAL DIFF YES %
[2017-01-02 08:33] LABS: A/G RATIO 0.6 (0.7-1.9); ALBUMIN 2.2 G/DL (3.5-5.0); ALKALINE PHOSPHATASE 368 U/L (45-117); CALCIUM, SERUM 8.7 MG/DL (8.5-10.4); CHLORIDE, SERUM 107 MMOL/L (96-112); CO2 (CARBON DIOXIDE) 22 MMOL/L (24-34); CREATININE 0.72 MG/DL (0.55-1.02); GFR AFRICAN AMERICAN 105 ML/MIN (>=60); GFR NON AFRICAN AMERICAN 91 ML/MIN (>=60); GLOBULIN 3.6 G/DL (2.5-4.1); GLUCOSE, SERUM 118 MG/DL (60-99); PHOSPHORUS, SERUM 2.7 MG/DL (2.5-4.5); POTASSIUM, SERUM 3.8 MMOL/L (3.5-5.3); SGOT(AST) 76 U/L (5-40); SGPT(ALT) 120 U/L (5-65); SODIUM, SERUM 138 MMOL/L (135-148); TOTAL BILIRUBIN 0.2 MG/DL (0-1.2); TOTAL PROTEIN 5.8 G/DL (6.0-8.5)
[2017-01-02 08:34] LABS: BUN (BLOOD UREA NITROGEN) 8 MG/DL (6-23)
[2017-01-02 08:46] LABS: BAND NEUTROPHILS 15 %; HYPOCHROMIA 1+ (3-10/OIF) (0-2/OIF); IMMATURE GRANS ABSOLUTE (CALC) 2.18 10/3/uL (0.0-0.11); LYMPHOCYTES 9 %; METAMYELOCYTES 12 %; MONOCYTES 4 %; MONOCYTES ABSOLUTE (CALC) 0.62 10/3/uL (0.21-1.20); MYELOCYTES 2 %; NEUTROPHILS ABSOLUTE (CALC) 11.39 10/3/uL (2.02-8.40); PLATELET ESTIMATE INC (ADEQUATE); SEGMENTED NEUTROPHIL (0) 58 %; TOTAL NUCLEATED CELLS 100
[2017-01-02] MEDS ORDERED: MARI5 PO (10:31)
[2017-01-02] MEDS ORDERED: COMP10B PO (10:32)
[2017-01-02] MEDS ORDERED: MULTIPLE VIT PO (10:39)
== END 2017-01-02 12:06 | disposition home health service (06) | DRG 393 ==
LOC: 4EA 12:03
PROVIDERS: Internal Medicine; Internal Medicine Hematology & Oncology; Nurse Practitioner Acute Care
PROC: 3E0336Z Introduction of Nutritional Substance into Peripheral Vein, Percutaneous Approach (ICD-10-PCS; principal; 2016-12-27)
DX: K52.1 Toxic gastroenteritis and colitis (principal); R57.1 Hypovolemic shock; E43 Unspecified severe protein-calorie malnutrition; E87.1 Hypo-osmolality and hyponatremia; Z68.1 Body mass index [BMI] 19.9 or less, adult; T45.1X5A Adverse effect of antineoplastic and immunosuppressive drugs, initial encounter; C50.919 Malignant neoplasm of unspecified site of unspecified female breast; G40.909 Epilepsy, unspecified, not intractable, without status epilepticus; E78.5 Hyperlipidemia, unspecified; R62.7 Adult failure to thrive; R74.0 Nonspecific elevation of levels of transaminase and lactic acid dehydrogenase [LDH]; Z17.0 Estrogen receptor positive status [ER+]
CPT/HCPCS: 74177; 80048; 80053; 80069; 80202; 81001; 82330; 82962; 83605; 83690; 83735; 83880; 84075; 84100; 84134; 84145; 84450; 84460; 84478; 85025; 85045; 87040; 87045; 87046; 87046-59; 87328; 87329; 87493; 87493-59; 87899; 87899-59; 89055; 97116-GP; 97161-GP; 97530-GP; A9270-GY; J1170; J2405; J2543; J3475; Q9967